=== PATIENT | female | born 1940 | race Native Hawaiian/Other Pacific Islander ===

== ENCOUNTER 2018-11-01 14:49 | Emergency (ER) | payer OTHER ==
[~2018-11-01] VITALS: Ht 165.1 cm; Wt 63.5 kg
[2018-11-01 14:49] VITALS: TEMP 99.5
[~2018-11-01 14:49] MED LIST: AMLO2.5T PO; BENICAR HCT1 TA2 PO; CALCIUM600 M2 PO; HYDRALAZINE10 MG PO; HYDRALAZINE50 MG PO; LESCOL XL80 MG PO; LEVO0.0529 PO; LEVO0.1224 PO; NOVOLOG IL; POT CHLORIDE10 MEQ PO; VITAMIN D1000 UNI1 PO
[2018-11-01 15:32] LABS: PLATELET COUNT 354 K/uL (152-353)
[2018-11-01 15:41] LABS: POTASSIUM 4.3 mmol/L (3.6-5.2); SODIUM 136 mmol/L (136-145)
[2018-11-01 19:15] VITALS: BP 126/66
== END 2018-11-01 20:00 | disposition short-term general hospital (02) ==
LOC: ED 14:49
PROVIDERS: Student in an Organized Health Care Education/Training Program
PROC: 0D9670Z Drainage of Stomach with Drainage Device, Via Natural or Artificial Opening (ICD-10-PCS; principal; 2018-11-01)
DX: K56.699 Other intestinal obstruction unspecified as to partial versus complete obstruction (principal); K45.8 Other specified abdominal hernia without obstruction or gangrene; D72.828 Other elevated white blood cell count; E11.9 Type 2 diabetes mellitus without complications; Z79.4 Long term (current) use of insulin; I45.19 Other right bundle-branch block
CPT/HCPCS: 36415; 43754; 80053; 81000; 82150; 82962; 83605; 83690; 83735; 84484; 85027; 93005; 96361; 96365; 96375; 99285; J2270; J2405; J2543; J3490

== ENCOUNTER 2018-11-01 20:01 | Outpatient (CLI) | payer OTHER | END 2018-11-01 21:11 | disposition short-term general hospital (02) | LOC: AMB 20:01 | DX: K56.699 Other intestinal obstruction unspecified as to partial versus complete obstruction (principal) | CPT/HCPCS: A0425; A0429 ==

== ENCOUNTER 2020-11-19 12:04 | Emergency (ER) | payer OTHER ==
[~2020-11-19] VITALS: Ht 30.5 cm; Wt 0.5 kg
== END 2020-11-19 12:48 | disposition short-term general hospital (02) ==
LOC: ED 12:04
PROC: 0BH17EZ Insertion of Endotracheal Airway into Trachea, Via Natural or Artificial Opening (ICD-10-PCS; principal; 2020-11-19)
PROC: 5A12012 Performance of Cardiac Output, Single, Manual (ICD-10-PCS; 2020-11-19)
PROC: 0T9B70Z Drainage of Bladder with Drainage Device, Via Natural or Artificial Opening (ICD-10-PCS; 2020-11-19)
PROC: 5A1935Z Respiratory Ventilation, Less than 24 Consecutive Hours (ICD-10-PCS; 2020-11-19)
DX: I21.29 ST elevation (STEMI) myocardial infarction involving other sites (principal); I46.9 Cardiac arrest, cause unspecified; E11.9 Type 2 diabetes mellitus without complications; Z79.4 Long term (current) use of insulin; I48.91 Unspecified atrial fibrillation; I45.19 Other right bundle-branch block; I25.2 Old myocardial infarction
CPT/HCPCS: 36415; 36600; 51702; 82805; 94002; 94003; 96360; 96365; 96375; 96376; 99285; J0171; J0461; J1644; J3490